=== PATIENT | female | born 1950 | race Caucasian/White ===

== ENCOUNTER 2017-04-05 05:12 | Day surgery (SDC) | payer OTHER ==
[2017-03-22 16:51] VITALS: BMI 29.8
[2017-04-05] MEDS ORDERED: PROPOFOL 20 ML ONE ×2 (07:41)
[2017-04-05] MEDS ORDERED: MIDAZOLAM HCL 2 MG/2 ML SINGLE DOSE VIAL ONE (07:41)
[2017-04-05] MEDS ORDERED: SUCCINYLCHOLINE CHLORIDE 200 MG/10 ML VIAL ONE (07:42)
[2017-04-05] MEDS ORDERED: LIDOCAINE HCL 0.5%, 5 MG/ML (50mL SDVIAL) ONE (07:54)
[2017-04-05] MEDS ORDERED: LIDOCAINE HCL 1%, 10 MG/ML (20ML VIAL) ONE (07:54)
[2017-04-05] MEDS ORDERED: ceFAZolin SODIUM 1 GM VIAL ONE (08:19)
[2017-04-05] MEDS ORDERED: ceFAZolin SODIUM 1 GM VIAL IVPB ONE (08:21)
[2017-04-05] MEDS ORDERED: KETOROLAC TROMETHAMINE 30 MG/1 ML VIAL ONE (08:23)
[2017-04-05] MEDS ORDERED: DEXAMETHASONE SOD PHOSPHATE 4 MG/1 ML VIAL ONE (08:23)
[2017-04-05] MEDS ORDERED: BUPIVACAINE HCL/PF 0.5% (5MG/ML) 10 ML VIAL IJ ONE ×2 (08:30)
[2017-04-05] MEDS ORDERED: LIDOCAINE HCL 1%, 10 MG/ML (20ML VIAL) IJ ONE ×2 (08:30)
[2017-04-05] MEDS ORDERED: oxyCODONE HCL 5 MG TABLET PO PRN (08:46)
[2017-04-05] MEDS ORDERED: ONDANSETRON 4 MG/2 ML VIAL IVPUSH PRN (08:46)
[2017-04-05] MEDS ORDERED: LACTATED RINGERS SOLUTION 1,000 ML IV SCH (09:00)
--- NOTE | 2017-04-05 09:01 | HP ---
Satellite H - Chief Complaint Chief Complaint: left hand pain - Past Medical History Allergies/Adverse Reactions: Allergies Allergy/AdvReac Type Severity Reaction Status Date / Time Sulfa (Sulfonamide Allergy Verified 04/05/17 07:07 Antibiotics) sulfamethoxazole Allergy Rash Verified 04/05/17 07:07 [From Bactrim] trimethoprim [From Bactrim] Allergy Rash Verified 04/05/17 07:07 - Current Medications Current Medications: Home Medications Medication Instructions Recorded Aspirin [ASA -] 81 mg PO DAILY 01/01/16 Calcium Carbonate/Vitamin D3 1 each PO BID 01/01/16 [Calcium 600-Vit D3 200 Tablet] Denosumab [Prolia -] 60 mg SQ ASDIR 01/01/16 Ergocalciferol (Vitamin D2) 50,000 unit PO MONTHLY 01/01/16 [Vitamin D] Hydrochlorothiazide 25 mg PO DAILY 01/01/16 Multivitamin [Poly-Vitamin] 1 each PO DAILY 01/01/16 [place]-3 Fatty Acids [Fish Oil] 300 mg PO DAILY 01/01/16 Simvastatin [Zocor -] 10 mg PO HS 01/01/16 Ubidecarenone [Coq-10] 100 mg PO DAILY 01/01/16 Chrm/Rhonda/ Bt-Org Peel/Gr T 1 each PO DAILY 03/22/17 [Apple Cider Vinegar Plus Tb] Azelastine HCl 137 mcg NS BID #30 spray.pump 04/05/17 Hydrocodone/Acetaminophen [[place] 1 - 2 each PO Q6H #40 tablet MDD 8 04/05/17 5-325 Tablet] Satellite Physical Exam - Physical Examination Vital Signs: Vital Signs Period Temp Pulse Resp BP Sys/Baker Pulse Ox Last 24 Hr 98.8 F 76 20 137/94 98 General Appearance: Well Nourished, Well Developed, Alert & Oriented x3 ENT: Clear Lung: Normal air movement Heart: Regular rate & rhythm Extremities: Other (left hand - +tinels, + phalens EMG + cts) Neurological: Intact, Alert, Oriented Satellite Impression/Plan - Impression/Plan Impression: left cts Operative Procedure: left ctr Date to be Performed: 04/05/17
--- NOTE | 2017-04-05 09:07 | OP ---
Operative Note - Note: Operative Date: 04/05/17 ([facility]) Pre-Operative Diagnosis: left cts Operation: left ctr Post-Operative Diagnosis: Same as Pre-op Surgeon: Vikas Hansen Anesthesiologist/PATIENT FLOW COORDINATOR: Genny Jones Anesthesia: General, Local Specimens Removed: tenosynovium Estimated Blood Loss (mls): 0 (tourniquet) Operative Report Dictated: Yes
[2017-04-05 09:36] VITALS: TEMP 97.6
[2017-04-05 10:22] VITALS: BP 126/91; PULSE 64
--- NOTE | 2017-04-06 11:06 | SPEC ---
DATE OF OPERATION: 04/05/2017 PREOPERATIVE DIAGNOSIS: Left carpal tunnel syndrome. POSTOPERATIVE DIAGNOSIS: Left carpal tunnel syndrome. PROCEDURE: Left carpal tunnel release and tenosynovectomy. SURGEON: Vikas Hansen M.D. SPECIMEN: Tenosynovium left wrist. DRAINS: None. COMPLICATIONS: None. FLUID REPLACEMENT: 500 mL. BLOOD LOSS: None. BLOOD GIVEN: None. SHEET METAL WORKER MAINTENANCE: None. ANESTHESIOLOGIST: Genny Jones CRNA ANESTHESIA: MAC, local injection with 12 mL of 0.5% Marcaine and Lidocaine mix. INDICATIONS: This patient is a 66-year-old female with a preoperative diagnosis of left carpal tunnel syndrome. After understanding the potential risks, complications, alternatives and benefits of surgery versus nonsurgical treatment, the patient elected to undergo this procedure, and the patient understands that she may not have complete relief of her symptoms including continuation of her numbness.. DESCRIPTION OF PROCEDURE: The patient was brought to the operating room, peripheral IV placed and intravenous sedation was given. One gram of intravenous Ancef was given. MAC anesthesia was induced. A tourniquet was applied to the left upper arm and the left upper extremity was prepped and draped in sterile fashion. The entire case was done under 3.8 loupe magnification. A marking pen was utilized to jacob out a longitudinal incision in an already existing skin crease. Twenty mL of 0.5% Marcaine mixed with 1% Lidocaine was injected in and around the surgical incision. The left upper extremity was elevated, exsanguinated with an Esmarch bandage and the tourniquet inflated to 250mm of mercury. A No. 15 scalpel blade was utilized to cut down through the skin. Subcutaneous hemostasis was achieved with the bipolar cautery. Dissection was done through the superficial palmar fascia. Self-retaining retractors were placed into the wound. Under direct visualization, the transverse carpal ligament was transected with a No. 15 scalpel blade, exposing the median nerve and the contents of the carpal tunnel. The distal and proximal extents of the release were completed with a Littler scissor and checked with irrigation and my small finger. They were seen to be complete. Limited dissection was done on the radial side of the median nerve and more extensive dissection was done on the ulnar side of the median nerve. The patients nerve was seen to be quite compressed by epineurium and therefore a limited epineurotomy was performed. A Ragnell retractor was used to gently retract the median nerve in a radial direction. The patient had a lot of tenosynovitis and therefore a tenosynovectomy was performed off of all nine flexor tendons. This was passed off the field as tenosynovium left wrist. The floor of the carpal tunnel was checked. There were no abnormal masses or ganglion cysts. The area was copiously irrigated and washed out and closure begun. Undyed 4-0 Vicryl was used to close the deep dermal layer. Final skin reapproximation was done with horizontal mattress 4-0 nylon sutures. The area was then washed and dried, covered with Xeroform, 4x4s, fluffs between the fingers, Webril and a 4-inch plaster roll was utilized to make a volar splint, which was then wrapped with Jose and Coban. The tourniquet was taken down after a total tourniquet time of 14 minutes. There were no complications during the case. The patient tolerated the procedure well and was brought to the ambulatory recovery room in stable condition. Edgar [id number] MTDD
--- NOTE | 2017-04-06 16:12 | PATH ---
Surgical Pathology Report Patient Name: DAVID WEBB [facility]. Rec. #: [id number] /Age/Gender: 1950 (Age: 66) / F Account: [id number] Location: [facility] Taken: 04/05/2017 Received: 04/05/2017 Reported: 04/06/2017 Physicians: Vikas Hansen M.D. Specimen(s) Received TENOSYNOVIUM Clinical History Carpal tunnel syndrome Final Diagnosis TENOSYNOVIUM, LEFT, CARPAL TOTAL RELEASE: BENIGN TENOSYNOVIAL FIBROCONNECTIVE TISSUE WITH FOCAL MYXOID DEGENERATION. Electronically Signed Robin Ziegler M.D. Gross Description Formalin labeled "tenosynovium" is a 2.4 x 1.3 x 0.4 cm aggregate of oconnell-yellow soft tissue fragments, consistent with tenosynovium. The specimen is submitted in toto in one cassette. 04/05/201704/05/2017
== END 2017-04-05 10:45 | disposition home or self-care (01) ==
LOC: JASU-SURG 05:12
PROVIDERS: ATTEND Orthopaedic Surgery
PROC: 0LB60ZZ Excision of Left Lower Arm and Wrist Tendon, Open Approach (ICD-10-PCS; 2017-04-05)
PROC: 01N50ZZ Release Median Nerve, Open Approach (ICD-10-PCS; principal; 2017-04-05 08:00)
DX: G56.02 Carpal tunnel syndrome, left upper limb (principal); M65.832 Other synovitis and tenosynovitis, left forearm
CPT/HCPCS: 88304-TC; 94760